=== PATIENT | female | born 1990 | race Caucasian/White ===

== ENCOUNTER 2021-04-30 11:26 | Emergency (ER) | payer BC, SELFPAY ==
[2021-04-30 10:50] VITALS: BP 127/79; PULSE 82; RESP 18; TEMP 36.6; O2SAT 100; BMI 29.2
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
[2021-04-30 11:08] LABS: Basophils # 0.1 K/mm3 (0-0.2); Basophils % 0.4 % (0.1-2.0); Eosinophils # 0.2 K/mm3 (0.0-0.4); Hemoglobin 10.4 g/dL (12.2-16.2); Lymphocytes # 1.4 K/mm3 (0.7-4.5); Mean Corpuscular HGB Conc 32.5 g/dL (31.8-35.4); Mean Corpuscular Volume 95.5 fl (81-99); Mean Platelet Volume 8.5 fl (7.4-10.4); Monocytes # 0.4 K/mm3 (0.1-1.0); Monocytes % 3.4 % (1.7-9.3); Neutrophils # 9.4 K/mm3 (1.8-7.8); Neutrophils % 82.2 % (37.0-80.0); Platelet Count 356 K/mm3 (142-424); Red Blood Count 3.36 M/mm3 (4.20-5.40); Red Cell Distribution Width 13.5 % (11.5-17.5); White Blood Count 11.4 K/mm3 (4.8-10.8)
[2021-04-30 11:12] LABS: Chloride 107 mmol/L (98-107); Sodium 135 mmol/L (136-145)
[2021-04-30 11:15] LABS: Alanine Aminotransferase 47 U/L (12-78); Albumin Level 3.2 g/dl (3.5-5.0); Albumin/Globulin Ratio 1.1 (1.1-1.8); Alkaline Phosphatase 68 U/L (38-126); Aspartate Amino Transferase 137 U/L (14-36); Bilirubin,Total 0.3 mg/dl (0.2-1.3); Blood Urea Nitrogen 4 mg/dl (7-17); Carbon Dioxide 21 mmol/L (22.0-30.0); Creatinine Clearance Estimated 187 mL/min (50-200); Estimated Glomerular Filt Rate 144 ml/min (>60); GFR (African American) 174 ML/MIN (>60); Globulin 2.9 g/dL (1.3-3.2); Total Protein,Serum 6.1 g/dl (6.3-8.2)
[2021-04-30 11:16] LABS: Calcium 8.3 mg/dl (8.4-10.2); Glucose 97 mg/dl (74-100)
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
[2021-04-30 12:41] VITALS: BP 126/87; PULSE 79; RESP 12; O2SAT 99
[2021-04-30 13:00] VITALS: BP 126/77; PULSE 71; RESP 12; O2SAT 97
[2021-04-30 13:30] VITALS: BP 131/79; PULSE 72; RESP 12; O2SAT 98
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
[2021-04-30 14:01] VITALS: BP 122/63; PULSE 81; RESP 17; O2SAT 97
[2021-04-30 14:39] VITALS: BP 122/63; PULSE 83; RESP 18; TEMP 36.6; O2SAT 98
== END 2021-04-30 15:16 | disposition home or self-care (01) ==
PROVIDERS: Emergency Provider Family Medicine; PCP Family Medicine
DX: S81.811A Laceration without foreign body, right lower leg, initial encounter (principal); V49.3XXA Car occupant (driver) (passenger) injured in unspecified nontraffic accident, initial encounter; Y92.488 Other paved roadways as the place of occurrence of the external cause; Z3A.14 14 weeks gestation of pregnancy; Z23 Encounter for immunization
CPT/HCPCS: 12035; 71045; 73562; 73610; 76805; 80053; 85025; 90471; 90715; 99282

== ENCOUNTER 2021-11-28 14:33 | Emergency (ER) | payer BC, SELFPAY ==
[2021-11-28 14:34] VITALS: BP 137/72; PULSE 89; RESP 16; TEMP 36.8; O2SAT 100; BMI 29.2
--- NOTE | 2021-11-28 15:02 | HMH.EDUTC ---
[facility] [place] Disposition Clinical Impression: Abscess Cellulitis Qualifiers: Site of cellulitis: unspecified site Qualified Code(s): L03.90 - Cellulitis, unspecified Disposition: Home, Self-Care Condition on Discharge: Good Instructions: Cellulitis, Clindamycin, Mupirocin, DI for Skin Abscess Additional Instructions: *Start antibiotic(s) immediately and be sure to take as ordered for the FULL length of time although you may be feeling better or start to see improvement in the next 24-48 hours *Monitor closely. Outlined redness so that you can monitor easier. Follow up immediately for new or worsening symptoms including but not limited to redness, swelling, streaking from site fever or chills. *Warm compress 15 minutes 3-4 times day *Never squeeze or pop these on your own. Seek immediate medical attention next time this occurs *Monitor Temp. Tylenol every 4 hours as needed and ibuprofen every 6 hours as needed (as long as your primary care doctor has told you that it is ok to take both. For fever, aches, pain. ER if no less that 101 despite Tylenol and ibuprofen Follow up with your family doctor/primary care physician in the next 48-72 hours if no improvement Prescriptions: clindamycin HCL [Clindamycin HCl] 300 mg PO Q8H 10 Days #30 cap Transmission Status: [id number] Mupirocin Calcium [Mupirocin 2% Cream 15gm] 1 applicatio TP TID 10 Days #15 gm Transmission Status: [id number] Referrals: Provider,Referral, [Primary Care Provider] - As needed Time of Disposition: 15:06 Medical Decision Making - Drew Inquiry Pt receiving controlled substance: No Drew was queried for this patient: No Vital Signs: 11/28/21 14:34 Temperature 98.2 F Temperature Source Oral Pulse Rate [Left Radial] 89 Respiratory Rate 16 Blood Pressure [Right Arm] 137/72 Blood Pressure Mean [Right Arm] 93 Blood Pressure Source [Right Arm] Automatic Cuff Blood Pressure Position [Right Arm] Sitting 02 Sat by Pulse Oximetry 100 Oxygen Delivery Method Room Air Orders (Tests/Meds): ORDERS Category Date Time Status Wound Culture and Gram Stain Stat Micro 11/28/21 14:47 Received [facility] [place] HPI - General Stated complaint: possible inf spider bite on waist Time Seen by Provider: 11/28/21 15:02 Mode of Arrival: Ambulatory Source of Information: Patient Limitations: No Limitations Description of Symptoms (Recalled from Triage Doc. by RN): SPIDER BITE RIGHT THIGH - PT REPORTS SHE NOTICED IT ABOUT 1 WEEK AGO HEENT Symptoms (Recalled from RN notes): No Resp Symptoms (Recalled from RN notes): No Skin Symptoms (Recalled from RN notes): Yes MS Symptoms (Recalled from RN notes): No Functional Status (Recalled from RN notes): N/A - History of Present Illness Provider Complaint: Patient states that she noticed a pimple like area on her right hip/waistband area States that she noticed it popped several days ago and has been draining States that today it was still draining so she came in to get it checked - Related Data Previous Rx's Medication Instructions Recorded Amoxicillin/Potassium Clav 1 tab PO Q12H #14 tab 04/30/21 [Augmentin 875-125 Tablet] Mupirocin Calcium [Mupirocin 2% 1 applicatio TP TID 10 Days #15 gm 11/28/21 Cream 15gm] clindamycin HCL [Clindamycin HCl] 300 mg PO Q8H 10 Days #30 cap 11/28/21 Allergies Allergy/AdvReac Type Severity Reaction Status Date / Time acetaminophen [From Vicodin] Allergy Verified 11/28/21 14:54 hydrocodone [From Vicodin] Allergy Verified 11/28/21 14:54 - Worker's Comp Is this a Worker's Comp case?: No Is this an H Worker's Comp?: No Is this a Irons Worker's Comp?: No [facility] History - Hepatitis A Screen Drug use history?: No High risk sexual behaviors?: No History of sexually transmitted infection?: No Currently employed?: No Childcare worker?: No Do you have indoor plumbing?: Yes Do you have electricity?: Yes Attestation statement:: This pat
[2021-11-28 15:25] VITALS: BP 103/64; PULSE 91; RESP 16; TEMP 37.2; O2SAT 98
== END 2021-11-28 15:27 | disposition home or self-care (01) ==
PROVIDERS: Emergency Provider Nurse Practitioner
DX: L02.415 Cutaneous abscess of right lower limb (principal)
CPT/HCPCS: 87070; 87077; 87186; 87205; 99212; G0463